=== PATIENT | male | born 1935 | race Caucasian/White ===

== ENCOUNTER 2018-02-25 08:22 | Day surgery (SDC) | payer OTHER ==
[~2018-02-25 08:22] MED LIST: SOD CHLORIDE 0.9% 1,000 ML IV
[2018-02-25 09:33] LABS: ADD MAN DIFF? NO
[2018-02-25 09:50] LABS: WHITE BLOOD COUNT 7.1 10^3/ul (4.8-10.8)
[2018-02-25 09:50] LABS: BASOPHILS % 0.4 % (0.0-2.0); EOSINOPHILS # 0.2 10^3/ul (0.0-0.5); EOSINOPHILS % 2.8 % (0.0-7.0); HEMATOCRIT 33.7 % (42.0-52.0); HEMOGLOBIN 10.7 g/dl (14.0-18.0); LYMPHOCYTES # 1.7 10^3/ul (0.8-2.9); LYMPHOCYTES % 23.8 % (15.0-51.0); MEAN CORPUSCULAR HEMOGLOBIN 28.9 pg (29.0-33.0); MEAN CORPUSCULAR HGB CONC 31.8 g/dl (32.0-37.0); MEAN CORPUSCULAR VOLUME 91.1 fl (82.0-101.0); MONOCYTE # 0.6 10^3/ul (0.3-0.9); MONOCYTES % 8.9 % (0.0-11.0); NEUTROPHIL # 4.5 10^3/ul (1.6-7.5); NEUTROPHILS % 63.8 % (39.0-77.0); PLATELET COUNT 166 10^3/UL (140-415); RED CELL DISTRIBUTION WIDTH 13.7 % (11.5-14.5)
[2018-02-25 10:13] LABS: ANION GAP 17 (8-16); BLOOD UREA NITROGEN 26 mg/dl (7-20); CARBON DIOXIDE 22 mmol/L (21-31); CHLORIDE 111 mmol/L (97-110); GLUCOSE 98 mg/dl (70-220); POTASSIUM 4.8 mmol/L (3.5-5.1); SODIUM 145 mmol/L (135-144)
[2018-02-25 10:32] LABS: PROTIME 13.3 Sec (11.9-14.9)
[2018-02-25] MEDS ORDERED: MIDAZOLAM 1 MG/ML 2 ML INJ (10:32)
[2018-02-25] MEDS ORDERED: HEPARIN 1000 UNITS/NS (A-LINE) 1,000 ML (10:32)
[2018-02-25] MEDS ORDERED: FENTAnyl 50 MCG/ML VIAL (10:32)
[2018-02-25] MEDS ORDERED: NITROGLYCERIN (IC) 100 MCG/ML INJ (10:32)
[2018-02-25] MEDS ORDERED: IODIXANOL LOCM 100 ML BTL (10:32)
[2018-02-25] MEDS ORDERED: VERAPAMIL 5 MG INJ (10:32)
[2018-02-25] MEDS ORDERED: HEPARIN 1000 UNITS/ML 10 ML INJ (10:32)
[2018-02-25 10:33] LABS: PARTIAL THROMBOPLASTIN TIME 27.4 Sec (25.0-35.0)
[2018-02-25] MEDS ORDERED: SOD CHLORIDE 0.9% 1,000 ML IV (11:35)
[2018-02-25] MEDS ORDERED: AL HYDROX/MG HYDROX/SIMETH 30 ML CUP PO (12:00)
[2018-02-25] MEDS ORDERED: ACETAMINOPHEN 325 MG TAB PO (12:00)
[2018-02-25] MEDS ORDERED: ONDANSETRON 4 MG INJ IV (12:00)
== END 2018-02-25 16:00 | disposition home or self-care (01) ==
LOC: SDS 08:22
DX: I25.10 Atherosclerotic heart disease of native coronary artery without angina pectoris (principal); R94.39 Abnormal result of other cardiovascular function study
CPT/HCPCS: 80048; 85025; 85610; 85730; 93005; 93458